=== PATIENT | male | born 1960 | race Caucasian/White ===

== ENCOUNTER 2018-04-01 17:21 | Emergency (ER) | payer OTHER ==
--- NOTE | 2018-04-01 17:41 | PDOC ---
History of Present Illness - General Chief Complaint: Injury Stated Complaint: Blood Pressure Problem Time Seen by Provider: 04/01/18 17:41 History Source: Patient Exam Limitations: No Limitations Past History - Past Medical History Allergies/Adverse Reactions: Allergies Allergy/AdvReac Type Severity Reaction Status Date / Time iodine Allergy Verified 04/01/18 17:48 Penicillins Allergy Verified 04/01/18 17:48 Home Medications: Ambulatory Orders Aspirin 81 mg PO DAILY 04/01/18 Digoxin [Lanoxin] 62.5 mcg PO DAILY 04/01/18 Emtricitabine/Tenofovir [Truvada] 1 tab PO DAILY 04/01/18 Insulin (Novolog) [Novolog] 38 units SQ TID 04/01/18 Liraglutide [Victoza -] 1.2 mg SQ DAILY@0700 04/01/18 Metformin HCl [Metformin HCl ER] 500 mg PO DAILY 04/01/18 Spironolactone 0 mg PO DAILY 04/01/18 ED Treatment Course - LABORATORY CBC & Chemistry Diagram: 04/01/18 17:54 04/01/18 17:54 Medical Decision Making - Medical Decision Making Pt was seen at bedside, also will be seen by attending Dr. Mc. Pt presenting via EMS after a fall. Pt states he was walking more than usual today, and felt light-headed on the street. He felt that he tripped over a step in the sidewalk , and fell onto both of his knees. He took his BG shortly before the fall to determine if he needed his insulin, and his BG at that time was 110, so did not take insulin. After the fall, the pt still felt light-headed and was Pt states he was in a [place] this AM and did not take his morning lasix dose. He often gets SOB with exertion Vitals stable, pt afebrile. Pt in NAD, normal body habitus. PE showed pt alert and oriented. lpn rn generally intact, muscular strength and sensation intact. Eyes PERRLA, EOMI. Oropharynx without erythema or exudates. No nasal congestion , hearing intact. Clear heart sounds, S1/S2, no JVD, b/l pedal edema, or heart murmur. Clear lung sounds, no respiratory distress, wheezes, crackles, or accessory muscle use. No abdominal or CVA tenderness to palpation, no rebound, no guarding. Abdomen soft, non-distended, and with normoactive bowel sounds. Abrasions present over b/l knees. L knee has effusion near patella and point tenderness over tibial plateau. RLE more edematous than LLE (pt states he has seen that "recently"). B/l LE strength and ROM intact. Anterior and posterior drawer tests intact, patella appears stable b/l. Considering mechanical fall vs ppt factors -- ACS, acute on CHF, DVT/PE (RLE > LLE, although pt already on anti-coagulation). Neuro exam intact, less likely intracranial pathology. Ordered work-up including CBC, CMP, cardiac profile (x2 trop), coags, BNP, ECG, chest x-ray, x-ray of L knee, b/l LE doppler. Pt denies pain control at this time and is otherwise stable. No need for other interventions at this time. Will continue to reassess pt and monitor for symptomatic improvement. 04/01/18 18:12 CBC WNL CMP WNL, trop .03 BNP elevated 800s (no prior for comparison) -- providing 40 mg IV lasix (pt did not take dose this AM, takes 40 mg PO BID). 04/01/18 19:28 ECG: RBBB, A-fib (pt states chronic). No ST segment elevations. 04/01/18 20:37 Repeat troponin sent to lab. Pt pending imaging --nursing staff aware. 04/01/18 21:05 Pt was taken to US, pending results and x-rays. 04/01/18 21:32 Second troponin .04, also negative, unlikely ACS. 04/01/18 21:43 US: No DVT identified 04/01/18 22:31 *DC/Admit/Observation/Transfer Diagnosis at time of Disposition: Shortness of breath Fall Qualifiers: Encounter type: initial encounter Qualified Code(s): W19.XXXA - Unspecified fall, initial encounter - Discharge Dispostion Disposition: HOME Condition at time of disposition: Improved Decision to Admit order: No - Referrals Referrals: [facility] – [place] [facility] at [place] [Provider Group] - Patient Instructions Printed Discharge Instructions: DI for Shortness of Breath Additional Instructions: You were seen in the ER today for shortness of breath and a fall. The results of your labs and imaging today were normal. Please follow-up with your primary care doctor and dry clipper tender within 1-2 days to discuss your visit and make sure your symptoms have improved. Please return to the ER if you have any worsening pain, development of fevers or chills, loss of consciousness, inability to tolerate food or fluids, or any other concerns. - Post Discharge Activity
[2018-04-01 17:47] VITALS: BP 160/89; PULSE 80; TEMP 98.6; BMI 29.5
[2018-04-01 18:09] LABS: BASO % 0.3 % (0-2.0); HEMATOCRIT 39.3 % (35.4-49); HEMOGLOBIN 12.7 GM/dL (11.7-16.9); LYMPH % 20.5 % (8-40); MCH 24.9 pg (25.7-33.7); MCHC 32.5 g/dl (32.0-35.9); MEAN CELL VOLUME 76.6 fl (80-96); MEAN PLT VOLUME 8.8 fl (7.5-11.1); MONO % 8.9 % (3.8-10.2); NEUT % 68.3 % (42.8-82.8); PLATELET COUNT 241 K/MM3 (134-434); RBC 5.13 M/mm3 (4.00-5.60); RDW 17.9 % (11.9-15.9); WHITE BLOOD COUNT 9.6 K/mm3 (4.0-10.0)
--- NOTE | 2018-04-01 18:15 | PDOC ---
Attending Attestation - HPI HPI: 04/01/18 18:22 The patient is a 57 year old male, with a significant PMH of sleep apnea, pacemaker with defibrillator, NC, who presents to the emergency department for evaluation s/p trip and fall earlier today. The patient states he was visiting from [place] to attend a constitution party and reports walking more than usual. The patient states he walked to the bus stop when he tripped on the curb landing on the pavement and scraping his knees. The patient denies any preceding chest pain, palpitations, SOB, dizziness or nausea before the fall. However, the patient states while on the ground he became lightheaded and was unable to stand up without assistance. The patient states a bystander called 911 for transport to the ED. The patient denies any neck or back pain. Denies any numbness, tingling or loss of sensation. Denies any bowel or bladder incontinence. The patient denies chest pain, shortness of breath, headache. Denies fever, chills, nausea, vomit, diarrhea and constipation. Denies dysuria, frequency, urgency and hematuria. Allergies: iodine, penicillins Documentation prepared by [place], acting as medical coding technician for Ha Mc MD. - Physicial Exam PE: 04/01/18 18:40 Vitals: Triage vital signs reviewed General Appearance: No acute distress, well nourished, well developed Head: Atraumatic Neck: Supple; No nuchal rigidity Chest Wall: Nontender Cardiac: Regular rate and rhythm, no murmurs, no rubs, no gallops Lungs: Clear to auscultation bilateral, good air movement bilaterally Abdomen: Soft, nondistended, normal bowel sounds, nontender to palpation Rectal: Exam deferred Extremities: (+) Bruising noted to bilateral knees. (+) Right lower extremity slightly larger than left. (+) Tenderness to palpation over the right palm. Full range of motion to all extremities, no cyanosis, clubbing. Skin: Warm and dry, no rashes or lesions, no rash, no petechiae Psych: Normal mood, normal affect <[place] - Last Filed: 04/01/18 18:40> - Resident Resident Name: Freda Contreras - ED Attending Attestation I have performed the following: I have examined & evaluated the patient, The case was reviewed & discussed with the resident, I agree w/resident's findings & plan, Exceptions are as noted - Medical Decision Making 04/01/18 19:01 57 years old past medical history significant for's CAD NC status post pacemaker status post mechanical trip and fall today Patient states that he did feel a little lightheaded and had some shortness of breath but this is normal for him as he was exerting himself The only reason patient presented to emergency department secondary to the fall Given the patient's cardiac history we will check an EKG 2 troponins x-ray the extremities which he injured bilateral knees and wrist observe and reassess Dr. Dennis to follow up labs and reasses <Ha Mc - Last Filed: 04/01/18 19:01>
[2018-04-01 18:21] LABS: INR 1.32 (0.83-1.09); PROTHROMBIN TIME (PATIENT) 15.6 SEC (9.7-13.0)
[2018-04-01 18:42] LABS: ALBUMIN 3.2 g/dl (3.4-5.0); ALK PHOS 67 U/L (45-117); ANION GAP 7 MMOL/L (8-16); BILIRUBIN,TOTAL 0.4 mg/dL (0.2-1); BLOOD UREA NITROGEN 24 mg/dL (7-18); CALCIUM 8.5 mg/dL (8.5-10.1); CHLORIDE 105 mmol/L (98-107); CO2 31 mmol/L (21-32); CREATININE 0.9 mg/dL (0.55-1.3); GLUCOSE,RANDOM 167 mg/dL (74-106); N-TERMINAL BNP 816.4 pg/ml (5-125); POTASSIUM 4.4 mmol/L (3.5-5.1); SGOT/AST 13 U/L (15-37); SGPT/ALT 18 U/L (13-61); SODIUM 142 mmol/L (136-145); TOT PROT 6.7 g/dl (6.4-8.2)
[2018-04-01] MEDS ORDERED: FUROSEMIDE 40 MG/4 ML INJECTABLE VIAL IVPUSH ONE (19:25)
[2018-04-01] MEDS ORDERED: ACETAMINOPHEN 500 MG TABLET (FP) PO ONE (19:27)
[2018-04-01] MEDS ORDERED: FUROSEMIDE 40 MG/4 ML INJECTABLE VIAL ONE (19:51)
[2018-04-01] MEDS ORDERED: ACETAMINOPHEN INJECTION 100 ML IVPB ONE (19:51)
[2018-04-01] MEDS ORDERED: ACETAMINOPHEN 1000 MG/100 ML VIAL (NON FORMULARY) IVPB ONE (20:09)
--- NOTE | 2018-04-01 22:44 | PDOC ---
*Physical Exam - Vital Signs Last Vital Signs Temp Pulse Resp BP Pulse Ox 98.6 F 80 16 160/89 93 L 04/01/18 17:42 04/01/18 17:42 04/01/18 17:42 04/01/18 17:42 04/01/18 17:42 ED Treatment Course - LABORATORY CBC & Chemistry Diagram: 04/01/18 17:54 04/01/18 17:54 - ADDITIONAL ORDERS Additional order review: Laboratory Results 04/01/18 04/01/18 04/01/18 21:00 17:54 17:54 PT with INR 15.60 H INR 1.32 H Sodium 142 Potassium 4.4 Chloride 105 Carbon Dioxide 31 Anion Gap 7 L BUN 24 H Creatinine 0.9 Creat Clearance w eGFR > 60 Random Glucose 167 H Calcium 8.5 Total Bilirubin 0.4 AST 13 L ALT 18 Alkaline Phosphatase 67 Creatine Kinase 124 Troponin I 0.04 0.03 B-Natriuretic Peptide 816.4 H Total Protein 6.7 Albumin 3.2 L 04/01/18 17:54 RBC 5.13 MCV 76.6 L MCHC 32.5 RDW 17.9 H MPV 8.8 Neutrophils % 68.3 Lymphocytes % 20.5 Monocytes % 8.9 Eosinophils % 2.0 Basophils % 0.3 - Medications Given in the ED: ED Medications Discontinued Medications Generic Name Dose Route Start Last Admin Trade Name Danette PRN Reason Stop Dose Admin Acetaminophen 1,000 mg 04/01/18 19:27 04/01/18 20:17 Tylenol - PO 04/01/18 19:28 Not Given ONCE ONE Acetaminophen 1,000 mg 04/01/18 20:09 04/01/18 20:16 Ofirmev Injection - IVPB 04/01/18 20:10 1,000 mg ONCE ONE Administration Furosemide 40 mg 04/01/18 19:25 04/01/18 20:08 Lasix Injection - IVPUSH 04/01/18 19:26 40 mg ONCE ONE Administration Medical Decision Making - Medical Decision Making 04/01/18 22:37 Pt was signed out to me; he fell while walking and struck his knees. Pt states that he had SOB and some lightheadedness. But reports that he has no chest pain and he states that he missed his lasix dose. He was given an IV dose of lasix when I got here, and he diuresed approx 1L urine. Pt has clear lungs; knee XR is normal. Right calf is more swollen than the left, however no blood clot as per DVT sonogram study. Pt feels well. He has 2 negative cardiac enzymes and he is stable to go home and follow with is doctors. 04/01/18 22:45 Pt's tetanus toxoid is UTDate *DC/Admit/Observation/Transfer Diagnosis at time of Disposition: Shortness of breath, Fall - Discharge Dispostion Disposition: HOME Condition at time of disposition: Improved - Referrals Referrals: [facility] – [place] [facility] at [place] [Provider Group] - Patient Instructions Printed Discharge Instructions: DI for Shortness of Breath - Post Discharge Activity
--- NOTE | 2018-04-02 13:01 | EKG ---
Test Reason : Blood Pressure : / mmHG Vent. Rate : 086 BPM Atrial Rate : 085 BPM P-R Int : 000 ms QRS Dur : 174 ms QT Int : 400 ms P-R-T Axes : 000 263 -11 degrees QTc Int : 478 ms ATRIAL FIBRILLATION WITH FREQUENT ventricular-paced complexes RIGHT BUNDLE BRANCH BLOCK ABNORMAL ECG NO PREVIOUS ECGS AVAILABLE Confirmed by LARRY FORDE MD ([id number]) on 04/02/2018 1:01:07 PM Referred By: Confirmed By:LARRY FORDE MD
== END 2018-04-01 23:19 | disposition home or self-care (01) ==
LOC: JER 17:21
PROC: 3E033GC Introduction of Other Therapeutic Substance into Peripheral Vein, Percutaneous Approach (ICD-10-PCS; principal; 2018-04-01)
PROC: 3E033NZ Introduction of Analgesics, Hypnotics, Sedatives into Peripheral Vein, Percutaneous Approach (ICD-10-PCS; 2018-04-01)
DX: R06.02 Shortness of breath (principal); R42 Dizziness and giddiness; M25.561 Pain in right knee; M25.562 Pain in left knee; W10.1XXA Fall (on)(from) sidewalk curb, initial encounter; Y93.01 Activity, walking, marching and hiking; Y92.480 Sidewalk as the place of occurrence of the external cause; Y99.8 Other external cause status; I25.10 Atherosclerotic heart disease of native coronary artery without angina pectoris; I25.2 Old myocardial infarction; I48.2 Chronic atrial fibrillation; G47.39 Other sleep apnea; E11.9 Type 2 diabetes mellitus without complications; Z79.4 Long term (current) use of insulin; Z95.810 Presence of automatic (implantable) cardiac defibrillator; R74.8 Abnormal levels of other serum enzymes
CPT/HCPCS: 36415; 71046-TC-FY; 73562-TC-LT-FY; 80053; 82550; 83880; 84484; 85025; 85610; 93005; 93010; 93970-TC; 96374; 96375; 99283-25; J0131